=== PATIENT | female | born 1965 | race Caucasian/White ===

== ENCOUNTER 2017-10-06 10:41 | Emergency (ER) | payer BC ==
--- NOTE | 2017-10-06 13:23 | UC ---
Respiratory Complaint HPI - HPI Summary HPI Summary: Pt presents with sinus pain/pressure/congestion and dry cough over the last 1 week. Over the last 3 days she developed hoarseness. Yesterday she started to have low back pain, but thinks this is from coughing or lying weird at night trying to get comfortable due to the cough. She has been taking mucinex OTC with relief during the day, but says by night-time this does not help. She denies fever, chills, SOB, chest pain, abdominal pain, n/v/d/c, body aches, dysuria, bowel or bladder incontinence. - History of Current Complaint Chief Complaint: UCGeneralIllness Stated Complaint: RESP ISSUE LOWER BACK PAIN HEADACHE Time Seen by Provider: 10/06/17 13:00 Hx Obtained From: Patient Hx Last Menstrual Period: hysterectomy Onset/Duration: Gradual Onset Timing: Constant Severity Initially: Mild Severity Currently: Mild Pain Intensity: 3 Pain Scale Used: 0-10 Numeric Character: Cough: Nonproductive - Allergies/Home Medications Allergies/Adverse Reactions: Allergies Allergy/AdvReac Type Severity Reaction Status Date / Time No Known Allergies Allergy Verified 10/06/17 12:21 Home Medications: Home Medications Eletriptan Hydrobromide [Relpax] 2 tab PO DAILY PRN 10/06/17 [History Confirmed 10/06/17] [email or web address] ER TAB [Mucinex*] 1 tab PO BID PRN 10/06/17 [History Confirmed 10/06] PMH/Surg Hx/FS Hx/Imm Hx Neurological History: Migraine - Surgical History Surgical History: Yes Surgery Procedure, Year, and Place: partial hysterectomies (x2); c sections; - Family History Known Family History: Positive: Hypertension - Social History Occupation: Employed Full-time Lives: With Family Alcohol Use: None Substance Use Type: None Smoking Status (MU): Never Smoked Tobacco - Immunization History Most Recent Influenza Vaccination: NOT UTD Review of Systems Constitutional: Negative Skin: Negative Eyes: Negative ENT: Nasal Discharge, Sinus Congestion, Sinus Pain/Tenderness, Other - Hoarseness Respiratory: Cough Cardiovascular: Negative Gastrointestinal: Negative All Other Systems Reviewed And Are Negative: Yes Physical Exam Triage Information Reviewed: Yes Appearance: Well-Appearing, No Pain Distress, Well-Nourished Vital Signs: Initial Vital Signs Temp 97.7 F 10/06/17 12:17 Pulse 105 10/06/17 12:17 Resp 16 10/06/17 12:17 BP 127/87 10/06/17 12:17 Pulse Ox 100 10/06/17 12:17 Vital Signs Reviewed: Yes Eyes: Positive: Conjunctiva Clear. Negative: Conjunctiva Inflamed, Discharge ENT: Positive: Hearing grossly normal, Pharyngeal erythema, Nasal congestion, Nasal drainage, TMs normal, Hoarse voice, Sinus tenderness, Uvula midline. Negative: TM bulging, TM dull, TM red, Tonsillar swelling, Tonsillar exudate, Muffled voice Neck: Positive: Supple, Nontender, No Lymphadenopathy Respiratory: Positive: Chest non-tender, Lungs clear, Normal breath sounds, No respiratory distress, No accessory muscle use Cardiovascular: Positive: RRR, No Murmur, Pulses Normal Neurological: Positive: Alert Psychological: Positive: Age Appropriate Behavior Skin: Negative: rashes UC Diagnostic Evaluation - Laboratory O2 Sat by Pulse Oximetry: 100 Respiratory Course/Dx - Course Course Of Treatment: Laryngitis. Sinusitis. Cough. Augmentin and Tessalon - Differential Dx/Diagnosis Provider Diagnoses: Sinusitis. Laryngitis. Cough Discharge - Discharge Plan Condition: Stable Disposition: HOME Prescriptions: Amoxicillin/Clavulanate TAB* [Augmentin TAB 875*] 875 mg PO BID #20 tab Benzonatate CAP* [Tessalon 100 MG CAP*] 100 mg PO TID PRN #21 cap PRN Reason: Cough Patient Education Materials: Sinusitis (ED), Laryngitis (ED) Referrals: Viviane Avalos MD [Primary Care Provider] - Additional Instructions: If you develop a fever, shortness of breath, chest pain, new or worsening symptoms - please call your PCP or go to the ED.
[2017-10-06 14:01] VITALS: BP 115/67
== END 2017-10-06 13:52 | disposition home or self-care (01) ==
LOC: UCEAST 10:41
DX: J32.9 Chronic sinusitis, unspecified (principal); J04.0 Acute laryngitis; R05 Cough; M54.5 Low back pain; G43.909 Migraine, unspecified, not intractable, without status migrainosus; Z90.711 Acquired absence of uterus with remaining cervical stump
CPT/HCPCS: 87502; 87651; 99212; G0463

== ENCOUNTER 2018-11-02 21:32 | Emergency (ER) | payer BC ==
[2018-11-02 21:39] VITALS: BP 127/80
[2018-11-02] MEDS ORDERED: Phenazopyridine TAB* 100 MG PO ONE (22:02)
[2018-11-02] MEDS ORDERED: Sulfamethox/Trimethoprim DS 800/160* TAB PO ONE ×2 (22:02)
--- NOTE | 2018-11-02 22:08 | UC ---
Complaint Female HPI - HPI Summary HPI Summary: ONSET THIS EVENING OF DYSURIA, HEMATURIA, FREQUENCY AND URGENCY. NO FEVER OR BACK PAIN. HAS SOME MILD NAUSEA BUT NO VOMITING. - History Of Current Complaint Chief Complaint: UCGU Stated Complaint: UTI Time Seen by Provider: 11/02/18 21:33 Hx Obtained From: Patient Hx Last Menstrual Period: hysterectomy Onset/Duration: Sudden Onset, Lasting Hours, Still Present Timing: Constant Severity Initially: Moderate Severity Currently: Moderate Pain Intensity: 7 Pain Scale Used: 0-10 Numeric Character: Burning Aggravating Factor(s): Urination Alleviating Factor(s): Nothing Associated Signs And Symptoms: Positive: Nausea. Negative: Fever, Back Pain - Allergies/Home Medications Allergies/Adverse Reactions: Allergies Allergy/AdvReac Type Severity Reaction Status Date / Time No Known Allergies Allergy Verified 11/02/18 21:39 PMH/Surg Hx/FS Hx/Imm Hx Neurological History: Migraine - Surgical History Surgical History: Yes Surgery Procedure, Year, and Place: partial hysterectomies (x2); c sections; - Family History Known Family History: Positive: Hypertension - Social History Alcohol Use: Rare Substance Use Type: None Smoking Status (MU): Never Smoked Tobacco - Immunization History Most Recent Influenza Vaccination: NOT UTD Review of Systems All Other Systems Reviewed And Are Negative: Yes Constitutional: Positive: Negative Respiratory: Positive: Negative Cardiovascular: Positive: Negative Gastrointestinal: Positive: Abdominal Pain, Nausea Genitourinary: Positive: Dysuria, Hematuria, Frequency, Urgency Physical Exam Triage Information Reviewed: Yes Appearance: Well-Appearing, No Pain Distress, Well-Nourished Vital Signs: Initial Vital Signs Temp 97.8 F 11/02/18 21:36 Pulse 98 11/02/18 21:36 Resp 20 11/02/18 21:36 BP 127/80 11/02/18 21:36 Pulse Ox 100 11/02/18 21:36 Laboratory Tests 11/02/18 21:48 POC Urine Color Yellow POC Urine Clarity Slightly cloudy POC Urine pH 6.0 POC Ur Specif [place] 1.015 POC Urine Protein 2+ A POC Ur Glucose (UA) Negative POC Urine Ketones Negative POC Urine Blood 3+ A POC Urine Nitrite Positive A POC Urine Bilirubin Negative POC Urine Urobilinogen 0.2 POC U Leukocyte Esteras 3+ A Vital Signs Reviewed: Yes Eyes: Positive: Conjunctiva Clear ENT: Positive: Hearing grossly normal Neck: Positive: Supple Respiratory: Positive: No respiratory distress, No accessory muscle use Cardiovascular: Positive: Pulses Normal Abdomen Description: Positive: Soft, Other: - SUPRAPUBIC TTP. Negative: CVA Tenderness (R), CVA Tenderness (L), Distended, Guarding Musculoskeletal: Positive: No Edema Neurological: Positive: Alert Psychological: Positive: Age Appropriate Behavior Skin: Negative: Rashes Complaint Female Dx - Differential Dx/Diagnosis Provider Diagnosis: UTI (urinary tract infection) Discharge - Sign-Out/Discharge Documenting (check all that apply): Patient Departure All imaging exams completed and their final reports reviewed: No Studies - Discharge Plan Condition: Stable Disposition: HOME Prescriptions: Phenazopyridine TAB* [Pyridium TAB*] 200 mg PO TID #6 tab Sulfamethox/Trimethoprim DS* [Bactrim DS 800/160 TAB*] 1 tab PO BID #8 tab Patient Education Materials: Urinary Tract Infection in Women (ED) Forms: *Work Release Referrals: Viviane Avalos MD [Primary Care Provider] - If Needed - Billing Disposition and Condition Condition: STABLE Disposition: Home
== END 2018-11-02 22:16 | disposition home or self-care (01) ==
LOC: UCEAST 21:32
DX: N39.0 Urinary tract infection, site not specified (principal); R11.0 Nausea
CPT/HCPCS: 81003; 87077; 87086; 87186; 99213; A9270-GY; G0463